=== PATIENT | female | born 1985 | race African-American/Black ===

== ENCOUNTER 2018-04-28 09:57 | Emergency (ER) | payer OTHER ==
[~2018-04-28] VITALS: Ht 172.7 cm; Wt 81.8 kg
[~2018-04-28 09:57] MED LIST: NO MEDS
[2018-04-28] MEDS ORDERED: IBUPROFEN 800 MG TABLET PO ONE (12:30)
[2018-04-28 12:39] VITALS: BP 132/87
== END 2018-04-28 12:45 | disposition home or self-care (01) ==
LOC: EMS 09:59
DX: T19.2XXA Foreign body in vulva and vagina, initial encounter (principal); F17.210 Nicotine dependence, cigarettes, uncomplicated; X58.XXXA Exposure to other specified factors, initial encounter; Y93.89 Activity, other specified; Y92.89 Other specified places as the place of occurrence of the external cause; Y99.8 Other external cause status

== ENCOUNTER 2020-01-06 11:26 | Emergency (ER) | payer OTHER ==
[~2020-01-06] VITALS: Ht 177.8 cm; Wt 100.0 kg
[2020-01-06 14:30] LABS: APPEARANCE,URINE CLEAR (CLEAR); BILIRUBIN,URINE NEGATIVE (NEGATIVE); GLUCOSE, URINE (UA) NEGATIVE (NEGATIVE); KETONES,URINE NEGATIVE (NEGATIVE); LEUKOCYTE ESTERASE ,URINE NEGATIVE (NEGATIVE); NITRATE,URINE NEGATIVE (NEGATIVE); OCCULT BLOOD,URINE NEGATIVE (NEGATIVE); PH,URINE 7.5 (5.0-8.0); PROTEIN,URINE NEGATIVE (NEGATIVE)
[2020-01-06 16:34] VITALS: BP 135/80
== END 2020-01-06 16:38 | disposition home or self-care (01) ==
LOC: EMS 11:27
DX: N76.0 Acute vaginitis (principal); B96.89 Other specified bacterial agents as the cause of diseases classified elsewhere; F17.210 Nicotine dependence, cigarettes, uncomplicated
CPT/HCPCS: 87210; 87491; 87591

== ENCOUNTER 2021-02-18 11:29 | Emergency (ER) | payer OTHER ==
[~2021-02-18] VITALS: Ht 167.6 cm; Wt 79.1 kg
[2021-02-18 13:24] VITALS: BP 104/64
== END 2021-02-18 13:56 | disposition home or self-care (01) ==
LOC: EMS 11:29
DX: J45.901 Unspecified asthma with (acute) exacerbation (principal); F17.210 Nicotine dependence, cigarettes, uncomplicated; Z20.822 Contact with and (suspected) exposure to COVID-19
CPT/HCPCS: 71045; 99284; U0003

== ENCOUNTER 2021-04-22 12:11 | Emergency (ER) | payer OTHER ==
[~2021-04-22] VITALS: Ht 167.6 cm; Wt 77.3 kg
[2021-04-22 12:23] VITALS: BP 104/81
[2021-04-22 12:52] LABS: COVID AG,FIA SOURCE NASOPHARYNGEAL
== END 2021-04-22 13:29 | disposition home or self-care (01) ==
LOC: EMS 12:14
DX: J20.9 Acute bronchitis, unspecified (principal); J45.909 Unspecified asthma, uncomplicated; F17.290 Nicotine dependence, other tobacco product, uncomplicated; Z20.822 Contact with and (suspected) exposure to COVID-19
CPT/HCPCS: 71045; 87426; 99284; U0003

== ENCOUNTER 2021-11-06 10:23 | Emergency (ER) | payer OTHER ==
[~2021-11-06] VITALS: Ht 170.2 cm; Wt 86.8 kg
[2021-11-06 10:30] VITALS: BP 126/89
[2021-11-06] MEDS ORDERED: ALBU8HFA IH (10:34)
[2021-11-06 10:48] LABS: COVID AG,FIA SOURCE NASAL SWAB
[2021-11-06] MEDS ORDERED: IBUP-1554 PO (12:09)
[2021-11-06] MEDS ORDERED: ALBU8.5H8 IH (12:09)
[2021-11-06] MEDS ORDERED: ACET-2080 PO (12:09)
[2021-11-06] MEDS ORDERED: GUAIFDM PO (12:09)
== END 2021-11-06 12:33 | disposition home or self-care (01) ==
LOC: EMS 10:27
DX: U07.1 COVID-19 (principal); J06.9 Acute upper respiratory infection, unspecified; J40 Bronchitis, not specified as acute or chronic
CPT/HCPCS: 99283

== ENCOUNTER 2021-11-21 12:45 | Emergency (ER) | payer OTHER ==
[~2021-11-21] VITALS: Ht 170.2 cm; Wt 61.4 kg
[~2021-11-21 12:45] MED LIST changes: +ACET-2080 PO; +ALBU8.5H8 IH; +ALBU8HFA IH; +GUAIFDM PO; +IBUP-1554 PO; -NO MEDS
[2021-11-21 16:02] VITALS: BP 115/85
[2021-11-21] MEDS ORDERED: ALPRAZolam 0.25 MG TABLET PO ONE (16:15)
[2021-11-21] MEDS ORDERED: ALPR-705 PO (16:25)
== END 2021-11-21 16:45 | disposition home or self-care (01) ==
LOC: EMS 12:47
DX: F41.9 Anxiety disorder, unspecified (principal); J45.909 Unspecified asthma, uncomplicated
CPT/HCPCS: 93005; 99283

== ENCOUNTER 2022-07-03 10:54 | Emergency (ER) | payer OTHER ==
[~2022-07-03] VITALS: Ht 167.6 cm; Wt 85.0 kg
[~2022-07-03 10:54] MED LIST changes: -ACET-2080 PO; -ALBU8.5H8 IH; -ALBU8HFA IH; +ALPR-705 PO; +BENZ-227 PO; +GUAI-487 PO; -GUAIFDM PO; -IBUP-1554 PO; +PROM118S5 PO
[2022-07-03 10:58] VITALS: BP 121/74
[2022-07-03 12:23] LABS: COVID AG,FIA SOURCE NASAL SWAB
[2022-07-03 12:47] LABS: RAPID GROUP A STREP NEGATIVE (NEGATIVE)
[2022-07-03 12:48] LABS: INFLUENZA TYPE A NEGATIVE FOR TYPE A (NEGATIVE); INFLUENZA TYPE B NEGATIVE FOR TYPE B (NEGATIVE)
[2022-07-03] MEDS ORDERED: PredniSONE 20 MG TABLET PO ONE (13:30)
[2022-07-03] MEDS ORDERED: PRED-554 PO (13:52)
[2022-07-03] MEDS ORDERED: AZIT250T9 PO (13:52)
== END 2022-07-03 14:00 | disposition home or self-care (01) ==
LOC: EMS 10:57
DX: J45.901 Unspecified asthma with (acute) exacerbation (principal); F41.9 Anxiety disorder, unspecified; F17.210 Nicotine dependence, cigarettes, uncomplicated; Z98.890 Other specified postprocedural states; Z20.822 Contact with and (suspected) exposure to COVID-19
CPT/HCPCS: 99284; 71045; 87426; 87430; 87804; 81025; J7512

== ENCOUNTER 2024-03-12 19:40 | Emergency (ER) | payer OTHER ==
[~2024-03-12] VITALS: Ht 170.2 cm; Wt 82.7 kg
[~2024-03-12 19:40] MED LIST changes: -ALPR-705 PO; +PRED-554 PO
[2024-03-12 19:48] VITALS: TEMP 99.4
[2024-03-12 20:11] LABS: APPEARANCE,URINE CLEAR (CLEAR); BILIRUBIN,URINE NEGATIVE (NEGATIVE); COLOR,URINE COLORLESS (YELLOW); GLUCOSE, URINE (UA) NEGATIVE (NEGATIVE); KETONES,URINE NEGATIVE (NEGATIVE); LEUKOCYTE ESTERASE ,URINE NEGATIVE (NEGATIVE); NITRATE,URINE NEGATIVE (NEGATIVE); OCCULT BLOOD,URINE NEGATIVE (NEGATIVE); PROTEIN,URINE NEGATIVE (NEGATIVE); SPECIFIC GRAVITIY, URINE 1.008 (1.003-1.030); UROBILINOGEN,URINE <=1.0 mg/dL (<=1.0)
[2024-03-12 20:52] LABS: EOSINOPHILS % (AUTO) 0.1 % (1.0-6.0); HEMATOCRIT 33.9 % (36-46); HEMOGLOBIN 11.2 g/dL (12.0-16.0); LYMPHOCYTES # (AUTO) 0.4 K/uL (1.0-4.8); LYMPHOCYTES % (AUTO) 6.9 % (22.0-44.0); MEAN CORPUSCULAR HGB CONC 33.1 G/dL (31.0-37.0); MEAN CORPUSCULAR VOLUME 85 fL (80-100); MONOCYTES # (AUTO) 0.1 K/uL (0.1-1.0); MONOCYTES % (AUTO) 1.5 % (2.0-9.0); NEUTROPHILS # (AUTO) 5.5 K/uL (1.8-7.7); PLATELET COUNT (AUTO) 453 K/uL (150-450); RED BLOOD CELL COUNT(AUTO) 4.01 MIL/uL (4.00-5.20); RED CELL DISTRIBUTION WIDTH 14.4 % (11.5-14.5)
[2024-03-12 20:53] LABS: NEUTROPHILS % (AUTO) 91.5 % (40.0-70.0)
[2024-03-12 21:04] LABS: RBC MORPHOLOGY COMMENT NORMAL RBC MORPH
[2024-03-12 21:07] LABS: PROTHROMBIN TIME 10.8 SEC (9.4-11.6)
[2024-03-12] MEDS: DEXAMETHASONE SOD PHOS 4 MG/ML 5 ML VIAL IVP ONE (21:16)
[2024-03-12] MEDS: KETOROLAC TROMETHAMINE 30 MG/ML VIAL IVP ONE (21:17)
[2024-03-12 21:20] VITALS: PULSE 90; RESP 16; O2SAT 95
[2024-03-12 21:21] VITALS: PULSE 90; RESP 16; O2SAT 95
[2024-03-12] MEDS: ALBUTEROL SULFATE 2.5 MG/0.5 ML NEB SOLUTION NEB ONE (21:26)
[2024-03-12] MEDS: IPRATROPIUM BROMIDE 0.5 MG/2.5 ML NEB SOLUTION NEB ONE (21:26)
[2024-03-12 21:33] VITALS: PULSE 100; RESP 16; O2SAT 100
[2024-03-12 21:35] LABS: ALANINE AMINOTRANSFERASE 17 U/L (12-78); ALBUMIN 3.3 g/dL (3.4-5.0); ALKALINE PHOSPHATASE 50 U/L (46-116); ANION GAP 9 mmol/L (8-16); ASPARTATE AMINOTRANSFERASE 19 U/L (15-37); BILIRUBIN,TOTAL 0.5 mg/dL (0.1-1.0); CALCIUM, TOTAL 8.9 mg/dL (8.8-10.5); CARBON DIOXIDE 25 mmol/L (22-29); CHLORIDE 103 mmol/L (98-107); CREATINE KINASE, TOTAL ONLY 87 U/L (26-192); CREATININE 0.95 mg/dL (0.60-1.30); GLOMERULAR FILTR. RATE CALC > 60 mL/min (>60); GLUCOSE,RANDOM 110 mg/dL (70-110); SODIUM SERUM 137 mmol/L (136-145); TOTAL PROTEIN, SERUM 7.9 g/dL (6.4-8.2); UREA NITROGEN, BLOOD 9 mg/dL (7-18)
[2024-03-12 21:37] LABS: POTASSIUM 2.8 mmol/L (3.5-5.1)
[2024-03-12 21:38] LABS: TROPONIN I-HIGH SENSITIVITY Less Than 4 ng/L (<51)
[2024-03-12] MEDS ORDERED: IOHEXOL 350 MG/ML 100 ML VIAL ONE (21:54)
[2024-03-12] MEDS ORDERED: SODIUM CHLORIDE 0.9% 100 ML ONE (21:54)
[2024-03-12 22:33] LABS: COVID AG,FIA SOURCE NASAL SWAB
[2024-03-12] MEDS: POTASSIUM CHL 10 MEQ/WATER 50 ML IV SCH (22:40)
[2024-03-12 22:51] LABS: INFLUENZA TYPE A NEGATIVE FOR TYPE A (NEGATIVE); INFLUENZA TYPE B NEGATIVE FOR TYPE B (NEGATIVE); SARS-COV2 (COVID) ANTIGEN,FIA Negative (Negative)
[2024-03-12] MEDS ORDERED: ALBU18HF12 IH (23:35)
[2024-03-12] MEDS: POTASSIUM CHLORIDE 20 MEQ ER TABLET PO ONE (23:50)
[2024-03-13 00:03] VITALS: BP 120/61; PULSE 75; RESP 12; O2SAT 96
== END 2024-03-13 00:03 | disposition home or self-care (01) ==
LOC: EMS 19:40
DX: R06.00 Dyspnea, unspecified (principal); R07.9 Chest pain, unspecified; J45.909 Unspecified asthma, uncomplicated; F17.210 Nicotine dependence, cigarettes, uncomplicated; Z79.52 Long term (current) use of systemic steroids; Z20.822 Contact with and (suspected) exposure to COVID-19
CPT/HCPCS: 99285; 96374; 71275; 96375; 71045; 87426; 80053; 81003; 82550; 84484; 84703; 85025; 85379; 85610; 85730; 87804; 36415; 94640; 93005; Q9967; J1100; J1885; J3480; J7050; 94060; J7613